=== PATIENT | female | born 1965 | race Caucasian/White ===

== ENCOUNTER 2016-08-16 11:19 | Emergency (ER) | payer OTHER ==
--- NOTE | 2016-08-16 11:23 | PDOC ---
History of Present Illness - General Chief Complaint: Cold Symptoms Stated Complaint: FEVER, BODY ACHES, SORE THROAT Time Seen by Provider: 08/16/16 11:21 - History of Present Illness Initial Comments: 08/16/16 11:54 Chief complaint: Fever and chills History of present illness: Patient awoke this morning, feeling feverish and experiencing chills. She admits to sore throat but no cough, abdominal pain, nausea, vomiting, diarrhea, or dysuria. Review of systems: No chest pain, shortness of breath, abdominal pain, nausea, vomiting, diarrhea, visual or focal neurologic symptoms, unsteadiness of gait. Remainder systems reviewed and found to be negative Past medical history: Long-standing depression maintained on Parnate and Klonopin. Overactive bladder. Recent URI approximately 1 week ago, with resolution of symptoms prior to this morning. Otherwise no other significant medical or surgical illness. No flu shot Social history: No tobacco alcohol or nonprescription drugs. , stable home and family, works as a dog beautician and petroleum engineering teacher Family history: Reviewed and noncontributory Physical exam: Alert and oriented 3, well-developed well-nourished, no acute distress, cheerful and cooperative Temperature 102.4, remainder of vital signs stable PERRLA, fundi benign, ENT clear except for mild pharyngeal injection without exudate mass or swelling. Neck supple without bruit mass or nodes Lungs clear to P&A CV S1 and S2 normal without murmur rub or gallop pulses full and symmetric no JVD or edema Abdomen soft nontender without mass or organomegaly. Bowel sounds normal. Nondistended Extremities no CCE Skin clear, no rash, adequate turgor and what mucous membranes Impression: This is most likely the flu. Outside of a mild sore throat, there is no sign of other localizing infection Plan: CBC, chemistries, throat culture, influenza swab, IV fluids, Motrin, and observation. Further treatment depending on results. Past History - Past Medical History Allergies/Adverse Reactions: Allergies Allergy/AdvReac Type Severity Reaction Status Date / Time No Known Allergies Allergy Verified 08/16/16 11:20 Home Medications: Ambulatory Orders Clonazepam [Klonopin] 3 mg PO HS 09/29/15 Tranylcypromine So4 [Parnate (Nf)] 20 mg PO DAILY 09/29/15 Oseltamivir Phosphate [Tamiflu -] 75 mg PO BID #10 capsule 08/16/16 GI Disorders: Yes (GALL STONES) Kidney Stones: Yes Psychiatric Problems: Yes (DEPRESSION) - Surgical History Appendectomy: Yes (CHILDHOOD) - Psycho/Social/Smoking Cessation Hx Anxiety: Yes Suicidal Ideation: No Smoking History: Never smoked Hx Alcohol Use: No Drug/Substance Use Hx: No Substance Use Type: None ED Treatment Course - LABORATORY CBC & Chemistry Diagram: 08/16/16 11:37 08/16/16 11:25 Medical Decision Making - Medical Decision Making 08/16/16 14:28 Temperature 98 degrees after Motrin. White blood count 3.6, slightly low, but this has been the case during prior viral illnesses in the past, and has normalized a short time later. Patient feels better. No further sensation of fever or chills. Taking oral fluids well. Discharged in the company of her to follow-up as needed. *DC/Admit/Observation/Transfer Diagnosis at time of Disposition: Influenza A - Discharge Dispostion Condition at time of disposition: Stable Admit: No - Prescriptions Prescriptions: Oseltamivir Phosphate [Tamiflu -] 75 mg PO BID #10 capsule - Referrals Referrals: Soren Gibson MD [Primary Care Provider] - 3 days - Patient Instructions Printed Discharge Instructions: DI for Influenza -- Adult
[2016-08-16 11:24] VITALS: BP 94/52; PULSE 127; BMI 31.1
[2016-08-16 11:37] LABS: URINE APPEARANCE Clear; URINE BILIRUBIN Negative (NEGATIVE); URINE GLUCOSE (UA) Negative (NEGATIVE); URINE KETONE Trace (NEGATIVE); URINE LEUK ESTERASE Negative (NEGATIVE); URINE NITRITE Negative (NEGATIVE); URINE UROBILINOGEN 0.2 E.U/dl (0.2-1.0)
[2016-08-16] MEDS ORDERED: IBUPROFEN 600 MG TABLET (FP) PO ONE (11:38)
[2016-08-16] MEDS ORDERED: SODIUM CHLORIDE 1,000 ML IV STA (11:38)
[2016-08-16] MEDS ORDERED: IBUPROFEN 400 MG TABLET (FP) PO ONE (11:39)
[2016-08-16 11:41] LABS: MCH 28.6 pg (25.7-33.7); MCHC 32.7 g/dl (32.0-36.0); MEAN CELL VOLUME 87.6 fl (80-96); MEAN PLT VOLUME 6.6 fl (7.5-11.1); PLATELET COUNT 319 K/MM3 (134-434); RDW 13.2 % (11.6-15.6); WHITE BLOOD COUNT 3.6 K/mm3 (4.0-10.0)
[2016-08-16 12:09] LABS: ALBUMIN 3.8 g/dl (3.5-5.0); ALK PHOS 92 U/L (32-92); ANION GAP 9 (8-16); BILIRUBIN,TOTAL 0.4 mg/dl (0.2-1.0); CALCIUM 9.1 mg/dl (8.4-10.2); CO2 25 mmol/L (22-28); CREATININE 0.9 mg/dl (0.6-1.3); GLUCOSE,RANDOM 102 mg/dl (74-106); SGOT/AST 38 U/L (10-42); SGPT/ALT 23 U/L (10-40); TOT PROT 7.3 g/dl (6.4-8.3)
[2016-08-16 12:11] LABS: URINE BLOOD 2+ (NEGATIVE); URINE COLOR YELLOW; URINE PROTEIN 1+ (NEGATIVE)
[2016-08-16 13:19] LABS: URINE AMORPHOUS SEDIMENT 1+; URINE MUCUS 1+
[2016-08-16 13:36] VITALS: TEMP 98
== END 2016-08-16 14:43 | disposition home or self-care (01) ==
LOC: FER 11:19
PROC: 3E0337Z Introduction of Electrolytic and Water Balance Substance into Peripheral Vein, Percutaneous Approach (ICD-10-PCS; principal; 2016-08-16)
DX: J09.X2 Influenza due to identified novel influenza A virus with other respiratory manifestations (principal); F32.9 Major depressive disorder, single episode, unspecified; F41.9 Anxiety disorder, unspecified; Z87.442 Personal history of urinary calculi
CPT/HCPCS: 36415; 80053; 81003; 81015; 85025; 87070; 87077; 87086; 87430; 87804; 96360; 99283-25